=== PATIENT | male | born 1965 | race Caucasian/White ===

== ENCOUNTER 2016-12-08 08:54 | Emergency (ER) | payer OTHER ==
[2016-12-08 09:04] VITALS: BP 157/81; PULSE 87; RESP 20; TEMP 97.5
--- NOTE | 2016-12-08 09:14 | ED ---
Upper Extremity HPI - General Chief Complaint: Extremity Injury, Upper Stated Complaint: arm pain Time Seen by Provider: 12/08/16 09:05 Source: patient, RN notes reviewed Mode of arrival: ambulatory Limitations: no limitations - History of Present Illness Initial Comments: 51-year-old male presents emergency Department chief complaint of left arm pain. Patient states he was lifting a pool table yesterday and since he started pains left arm. Patient states the pain if he tries to flex the left arm or tries to supinate and pronate. He states the pain is moderate he feels weak. Patient states he doesn't have a pop or any other sensation when it happened. Patient states she was concerned due to the pains without that he should be evaluated.Patient denies any recent fever, chills, shortness of breath , chest pain, back pain, abdominal pain, nausea vomiting, numbness or tingling, dysuria or hematuria, constipation or diarrhea, headaches or visual changes, or any other current symptoms. Place: home - Related Data Previous Rx's Medication Instructions Recorded Ibuprofen [Motrin] 600 mg PO Q6HR PRN #20 tab 12/08/16 Allergies Allergy/AdvReac Type Severity Reaction Status Date / Time No Known Allergies Allergy Verified 12/08/16 09:04 Review of Systems ROS Statement: Those systems with pertinent positive or pertinent negative responses have been documented in the HPI. ROS Other: All systems not noted in ROS Statement are negative. Past Medical History Additional Past Medical History / Comment(s): Restless leg History of Any Multi-Drug Resistant Organisms: None Reported Past Surgical History: Orthopedic Surgery Past Psychological History: No Psychological Hx Reported Smoking Status: Former smoker Past Alcohol Use History: None Reported Past Drug Use History: None Reported General Exam - General Exam Comments Initial Comments: General: The patient is awake and alert, in no distress, and does not appear acutely ill. Neck: The neck is supple, there is no tenderness. Cardiovascular: There is a regular rate and rhythm. No murmur, rub or gallop is appreciated. Respiratory: Lungs are clear to auscultation, respirations are non-labored, breath sounds are equal. No wheezes, stridor, rales, or rhonchi. Musculoskeletal: Sensation intact with 2+ pulses of left upper infection. Full range motion of left shoulder. Patient has full passive range of motion of the left elbow. Patient has pain on full flexion of the left elbow actively. Full extension. Patient does have pain with supination and pronation patient has full flexion and extension of the wrist. Patient does have some weakness muscle strength testing of the left arm. Neurological: CN II-XII intact, There are no obvious motor or sensory deficits. Coordination appears grossly intact. Speech is normal. Skin: Skin is warm and dry and no rashes or lesions are noted. Psychiatric: Normal mood and affect. Limitations: no limitations Course Vital Signs 12/08/16 09:02 Temperature 97.5 F L Pulse Rate 87 Respiratory 20 Rate Blood Pressure 157/81 O2 Sat by Pulse 98 Oximetry Procedures - Orthopedic Splinting/Casting Injury #1 Side: left Upper Extremity Injury Location: elbow Upper Extremity Immobilizer: sling/shoulder immobilizer Medical Decision Making - Medical Decision Making 51-year-old male presents with what appears to be a biceps strain and brachioradialis strain. It is time we discussed Motrin for pain control. We discussed this in a sling we did discuss frozen shoulder and what to watch for. We did discuss close follow-up with orthopedics and return parameters. Patient stated that he understood he is in agreement with plan and all questions have been answered. This time he will be discharged home. - Radiology Data Radiology results: report reviewed, image reviewed Disposition Clinical Impression: Strain of left elbow and forearm Disposition: HOME SELF-CARE Condition: Stable Instructions: Muscle Strain (ED) Additional Instructions: Please use medication as discussed. Please follow up with family doctor if symptoms have not improved over the next two days. Please return to the emergency room if your symptoms increase or worsen or for any other concerns. Prescriptions: Ibuprofen [Motrin] 600 mg PO Q6HR PRN #20 tab PRN Reason: Pain Referrals: Tanvi Tran MD [Primary Care Provider] - 1-2 days Rehan De La Cruz MD [STAFF PHYSICIAN] - 1-2 days Time of Disposition: 09:37
--- NOTE | 2016-12-08 09:35 | XR ---
EXAMINATION TYPE: XR elbow complete LT DATE OF EXAM: 12/08/2016 9:21 AM COMPARISON: NONE HISTORY: 51-year-old male with pain TECHNIQUE: 3 views FINDINGS: No elbow joint effusion. No acute fracture, subluxation, or dislocation. Joint spaces are maintained. IMPRESSION: No acute osseous abnormality or elbow joint effusion.
== END 2016-12-08 09:48 | disposition home or self-care (01) ==
LOC: EC 08:54
DX: S56.912A Strain of unspecified muscles, fascia and tendons at forearm level, left arm, initial encounter (principal); S46.912A Strain of unspecified muscle, fascia and tendon at shoulder and upper arm level, left arm, initial encounter; Z87.891 Personal history of nicotine dependence; X50.0XXA Overexertion from strenuous movement or load, initial encounter; Y93.89 Activity, other specified
CPT/HCPCS: 99283